=== PATIENT | male | born 1990 | race Caucasian/White ===

== ENCOUNTER 2020-04-01 01:22 | Emergency (ER) | payer SELFPAY ==
[~2020-04-01] VITALS: Ht 170.2 cm; Wt 72.6 kg
--- NOTE | 2020-04-01 01:22 | NUR ---
PT LISBETH WITH [employer], PREBOOK. TAKEN TO CHAIR
[2020-04-01 01:26] VITALS: BP 116/70
--- NOTE | 2020-04-01 01:28 | NUR ---
LISBETH TAKEN TO CHAIR A
[2020-04-01 01:30] VITALS: BP 116/70
[2020-04-01] MEDS ORDERED: ACETAMINOPHEN EXTRA STRENGTH 500 MG TAB PO ONE (01:45)
--- NOTE | 2020-04-01 01:50 | NUR ---
PT TAKEN TO RADIOLOGY
--- NOTE | 2020-04-01 03:05 | NUR ---
18 G IV SITE ESTABLISHED TO R AC, SITE WAS PATENT FLUSHED WITH 10 ML OF 0.9% NS. NO INFILTRATION, REDNESS OR SWELLING NOTED.
--- NOTE | 2020-04-01 03:14 | NUR ---
PT TAKEN TO CT
--- NOTE | 2020-04-01 03:30 | NUR ---
PT RETURNED FROM CT.
--- NOTE | 2020-04-01 04:20 | NUR ---
PATIENT BIB [employer]. PATIENT EXAMINED BY DR. CALDERA. PATIENT MEDICALLY CLEARED AND RELEASED IN CUSTODY IN STABLE CONDITION. ORIGINAL PRE-BOOK FORM GIVEN TO OFFICER STEFFANIE, #[id number].
== END 2020-04-01 04:20 ==
LOC: MED 01:22
DX: R51.9 Headache, unspecified (principal); M54.2 Cervicalgia; M25.522 Pain in left elbow; V49.9XXA Car occupant (driver) (passenger) injured in unspecified traffic accident, initial encounter; Y93.89 Activity, other specified; Y92.89 Other specified places as the place of occurrence of the external cause; Y99.8 Other external cause status
CPT/HCPCS: 70450; 70496; 72125; 73030; 73080; 99291; Q9967